=== PATIENT | female | born 1940 | race African-American/Black ===

== ENCOUNTER 2017-04-22 14:11 | Inpatient (IN) ==
[2017-04-22] MEDS ORDERED: ALBUTEROL/IPRATROPIUM 3 ML NEB RESP TX STA (14:55)
[2017-04-22] MEDS ORDERED: ONDANSETRON 4 MG/2 ML VIAL IV STA (14:56)
[2017-04-22] MEDS ORDERED: SODIUM CHLORIDE 0.9% 2,000 ML IV STA (14:56)
--- NOTE | 2017-04-22 15:02 | Emergency Department Note ---
Arrival - Arrival Chief Complaint: Shortness of Breath Stated Complaint: altered mental status ED Nursing Triage Note: Transfer from [facility] for futher evaluation of dehydration and shortness of breath. Daughter reports patient "gasping for breaths around 0100am". Patient non-verbal x 1.5 weeks per history, also taking radiation for brain cancer. Mode of Arrival: Stretcher Source: Family Time Seen by Provider: 04/22/17 14:54 - History of Present Illness HPI Narrative: This 77-year-old black female diagnosed 2 months ago with glioblastoma followed by Dr. Tello Nicole for radiation therapy presents with a history of becoming more short of breath with gasping respirations earlier today. She was taken to [facility] where she was stabilized and then transferred here. Notable findings at [place] were evidence of acute renal failure and diffuse metabolic abnormalities. The staff there felt she had a mild seizure characterized by diffuse myoclonic muscle movements and for this she was given 750 mg of Keppra IV as well as 10 mg of Decadron IV. Currently patient is on Keppra to suppress seizures from her primary brain tumor. The family states that the patient has been going down [place] for the last 3 weeks and in the last 10 days has become nonverbal, eating almost nothing, and not taking fluids well at all. Currently the patient appears stuporous but in no acute medical distress. Despite being informed by neurosurgery at [facility] that if there was no response to treatment by the tumor, there was nothing more that could be done, the family still wants the patient to be a full code. Onset (ago): hour(s) (Patient presents 12 hours since onset of symptoms) Date of Last Menstrual Period: [facility] Allergies/Adverse Reactions: Allergies Allergy/AdvReac Type Severity Reaction Status Date / Time No Known Allergies Allergy Verified 04/22/17 14:56 Home Medications: Home Medications Medication Instructions Recorded Confirmed Type Potassium Chloride 8 meq PO BID 12/15/15 04/11/17 History Spironolactone [Aldactone] 12.5 mg PO DAILY 12/15/15 04/11/17 History amLODIPine [Norvasc] 2.5 mg PO QAM 12/15/15 04/11/17 History Aspirin EC Tab 325 mg PO QAM 04/11/17 04/11/17 History Atorvastatin [Lipitor] 10 mg PO QAM 04/11/17 04/11/17 History Dexamethasone Tab [Decadron Tab] 4 mg PO BID 04/11/17 04/11/17 History Pantoprazole Tab [Protonix Tab] 40 mg PO QAM 04/11/17 04/11/17 History Polyvinyl Alcohol [Artificial 1 - 2 drops BOTH EYES QPM 04/11/17 04/11/17 History Tears] Sertraline [Zoloft] 50 mg PO QAM 04/11/17 04/11/17 History levETIRAcetam [Levetiracetam] 750 mg PO BID 04/11/17 04/11/17 History oxyCODONE IR [Roxicodone] 5 mg PO Q6H PRN 04/11/17 04/11/17 History Review of System - Review of System ROS unobtainable: due to mental status Medical,Surgical,& Family Hx - Medical History Cardio: History of: Hypertension Psychological: History of: Depression Neurology: History of: Cerebrovascular Accident (x 2), Migraine No history of: Seizures HEENT: History of: Eye Problem (glasses) Endocrine: No history of: Thyroid Disorder Rheumatology: History of;: Rheumatoid Arthritis Genitourinary: No history of: Kidney Stones Gastrointestinal: History of: GERD, Polyps No history of: Hepatitis, Liver Problems Hematology: History of: Anemia No history of: Blood Transfusion Reaction Other: No history of: Anesthesia Reactions, Cancer - Surgical History Cardiac Surgeries: Patient Denies: Cardiac Catheterization HEENT Surgeries: Surgical HX of: Eye Surgery (cataracts), Tonsilectomy & Adenoidectomy Abdominal Surgeries: Surgical HX of: Appendectomy, Cholecystectomy, Colonoscopy , EGD Reproductive Surgeries: Surgical HX of;: Hysterectomy Patient denies;: Breast Surgery Orthopedic Surgeries: Patient denies;: Orthopedic Surgery - Family History Family History: Reports;: Family Cancer (mother-liver. aunt-bladder, sister-lung ) - Social History Smoking Status: Never smoker Frequency of Alcohol Use: None Type of Drug Use: None Exam Physical Examination: GENERAL: Chronically ill appearing black female HEENT: Normocephalic. No trauma. Moist mucous membranes. EOMI. PERRLA. ENT NML NECK: Supple. No adenopathy. CARDIAC: Regular. No murmurs. Heart rate 100 CHEST: Clear to auscultation. No respiratory distress. O2 sat 100% ABDOMEN: Soft. Nontender. Active bowel sounds. EXTREMITIES: No trauma. Normal ROM. No pedal edema. SKIN: No diaphoresis. No rash. NEURO: Withdraws to pain with evidence of motion of all 4 extremities but patient otherwise stuporous. Vital Signs: Vital Signs Temperature 97.2 F L 04/22/17 14:11 Pulse Rate 114 H 04/22/17 15:28 Respiratory Rate 18 04/22/17 15:28 Blood Pressure 113/70 04/22/17 14:11 O2 Sat by Pulse Oximetry 100 04/22/17 15:28 Course Course Narrative: I reviewed the most recent CT done as an outpatient which reveals a massive tumor with very superior implications. - Reevaluation(s) Reevaluation #1: Discussed with the family that we would have to transfer this patient to [facility] for neurosurgical backup if there are intention was to continue to make her a full code. At this point time the family feels to confused to make that decision and thus we will transfer to [facility] - Consultations Consultation #1: Discussed with the hospitalist service to felt as long as the patient was a full code she would best be served going to [facility] where they had neurosurgical backup. Consultation #2: Discussed with [facility] who will accept the patient in transfer, Dr. Sol accepting MD Results - Labs Labs: Lab per [facility] white blood cell count 11,800, hematocrit 46.9 BUN 109, creatinine 2.2, sodium 152, potassium 5.0 - Impressions EKG: Sinus tachycardia with normal NM interval but right ventricular conduction delay. Diffuse T-wave inversion but no acute injury pattern noted. - Diagnostic Findings Procedure: Chest x-ray: image reviewed by me, report reviewed by me (No acute disease but elevated left hemidiaphragm noted with no interval change on comparison films.) Disposition Clinical Impression: Glioblastoma, Acute renal failure Case discussed with: patient's family Disposition: Disch/Xfer-[facility] Term Hos Condition: Guarded Time of Disposition: 16:02
[2017-04-22] MEDS ORDERED: ONDANSETRON 4 MG/2 ML VIAL ONE (15:20)
--- NOTE | 2017-04-22 15:30 | CT Report ---
History is brain tumor Comparison with 04/26/2015 There has been mild worsening of ventricular dilatation however there has been increase in the amount of patchy and more confluent white matter low densities mildly more pronounced on the left where there is a more focal chronic encephalomalacia in anterior left basal ganglia Again seen are dense calcifications in the anterior coronal radiata and centrum semiovale on the right and white matter posterior to the posterior aspect of the lateral ventricle on the right. There has been progression of calcifications surrounding these areas with additional faint calcific density extending anteriorly across the corpus callosum to the left of midline. No focal mass effect or midline shift is present. The hyperdensity most likely related to calcification without definite evidence of acute hemorrhage seen. No acute cortical stroke identified Impression: 1. Progressive calcifications described above most likely related to progression of underlying neoplasm extending across the left of midline in the anterior aspect of the corpus callosum. 2. Progression of white matter disease which could be related to progression of chronic microvascular ischemia or sequelae of radiation. The CT exam was performed using one or more of the following dose reduction techniques: Automated exposure control, adjustment of the mA and/or kV according to patient size, or use of iterative reconstruction technique. PROCEDURE INTERPRETED AT [facility] [place] DEPARTMENT OF RADIOLOGY Final Report Signed by: Dr. Gavi Owens
--- NOTE | 2017-04-22 15:38 | EKG Report ---
Stationary ECG Study [facility] ER Test Date: 04/22/2017 3:38:09 PM Pat Name: RONDA BOUCHER Department: Room: Gender: F Cna: : 1940 Requested by: Natanael Briggs Order Number: [id number] Reading MD: KARINA SIMMS Intervals [place] Rate: 110 P: 81 WV: 156 QRS: 89 QRSD: 87 T: 192 QT: 318 QTc: 383 Interpretive Statements SINUS TACHYCARDIA POSSIBLE RIGHT VENTRICULAR CONDUCTION DELAY ST DEVIATION AND MODERATE T-WAVE ABNORMALITY, CONSIDER ANTEROLATERAL ISCHEMIA ST DEVIATION AND MODERATE T-WAVE ABNORMALITY, CONSIDER INFERIOR ISCHEMIA Electronically Signed On 04-23-17 10:39:57 CDT by KARINA SIMMS [email or web address]
--- NOTE | 2017-04-22 15:40 | XRay Report ---
History short of breath. The heart is normal in size There is elevation left diaphragm with mild linear opacity in the left lung base No confluent infiltrates are seen. Impression: Minimal discoid atelectasis in the left lung base PROCEDURE INTERPRETED AT [facility] DEPARTMENT OF RADIOLOGY Final Report Signed by: Dr. Gavi Owens
[2017-04-22] MEDS ORDERED: HYDROmorphone 2 MG/1 ML VIAL IV PRN (17:16)
[2017-04-22] MEDS ORDERED: ONDANSETRON 4 MG/2 ML VIAL IV PRN (17:16)
[2017-04-22] MEDS ORDERED: ACETAMINOPHEN 325 MG TABLET PO PRN (17:46)
--- NOTE | 2017-04-22 17:50 | Hospitalist History & Physical ---
Assessment and Plan (1) Glioblastoma Status: Acute Assessment and plan: Pt. diagnosed with glioblastoma 2 months ago. Has received 20 treatments of radiation therapy from Dr. Tello Nicole. Pt.'s family has also been informed by neurosurgery at [facility] that if there was no response to therapy; nothing could be done. Pt. is aware of patient's poor prognosis and wishes that patient's status be changed to DNR. Pt's family would like comfort care. Consult to psychiatric social worker for hospice services. Current Visit: Yes (2) Hypertension Status: Acute Assessment and plan: Pt's blood pressure is currently stable. 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 Current Visit: Yes (5) Hx of cholecystectomy Status: Chronic Current Visit: Yes (6) History of appendectomy Status: Chronic Current Visit: Yes (7) Depression Status: Acute Current Visit: Yes History of Present Illness Chief complaint: shortness of breath History of present illness: Ms. Young is a 77 year old black female recently diagnosed with glioblastoma and has a history of hypertension, CVA 2, depression, rheumatoid arthritis, GERD, polyps, anemia that presented to the hospital for further evaluation of shortness of breath. Patient was initially taken to [facility] in [place], [place] where she was stabilized and then transferred here. Findings at [facility] revealed acute renal failure and diffuse metabolic abnormalities. Per ER physician's note the patient was given Keppra as well as a steroid there. Her daughter, who is her only child, is present at the bedside. She stated that since the diagnosis of glioblastoma and radiation treatment, patient 's condition has progressively worsened over the last 3 weeks. Patient has been nonverbal for the past week and a half. She is also paralyzed from previous strokes. Last night her daughter noted that she was having a hard time breathing and began 'rattling'. At the point she became concerned. As noted above, pt. was seen in [place], and transferred here. CT revealed 'progressive calcifications most likely related to the progression of underlying neoplasm extending across the left of midline in the anterior aspect of the corpus callosum'. Patient's family initially wanted patient to be transferred to [facility] however after discussion with Dr. Contreras and being fotmed that [facility] could not offer therapy, pt's daughter wishes to stay here. CODE STATUS has been discussed with patient's daughter who was at the bedside and she requests DO NOT RESUSCITATE. Patient will be admitted to the hospitalist service for hospice referral and comfort care measures. Home Medications Medication Instructions Recorded Confirmed Type Potassium Chloride 8 meq PO BID 12/15/15 04/11/17 History Spironolactone [Aldactone] 12.5 mg PO DAILY 12/15/15 04/11/17 History amLODIPine [Norvasc] 2.5 mg PO QAM 12/15/15 04/11/17 History Aspirin EC Tab 325 mg PO QAM 04/11/17 04/11/17 History Atorvastatin [Lipitor] 10 mg PO QAM 04/11/17 04/11/17 History Dexamethasone Tab [Decadron Tab] 4 mg PO BID 04/11/17 04/11/17 History Pantoprazole Tab [Protonix Tab] 40 mg PO QAM 04/11/17 04/11/17 History Polyvinyl Alcohol [Artificial 1 - 2 drops BOTH EYES QPM 04/11/17 04/11/17 History Tears] Sertraline [Zoloft] 50 mg PO QAM 04/11/17 04/11/17 History levETIRAcetam [Levetiracetam] 750 mg PO BID 04/11/17 04/11/17 History oxyCODONE IR [Roxicodone] 5 mg PO Q6H PRN 04/11/17 04/11/17 History Allergies Allergy/AdvReac Type Severity Reaction Status Date / Time No Known Allergies Allergy Verified 04/22/17 14:56 Medical,Surgical,& Family Hx - Medical History Cardio: History of: Hypertension Psychological: History of: Depression Neurology: History of: Cerebrovascular Accident (x 2), Migraine No history of: Seizures HEENT: History of: Eye Problem (glasses) Endocrine: No history of: Thyroid Disorder Rheumatology: History of;: Rheumatoid Arthritis Genitourinary: No history of: Kidney Stones Gastrointestinal: History of: GERD, Polyps No history of: Hepatitis, Liver Problems Hematology: History of: Anemia No history of: Blood Transfusion Reaction Other: No history of: Anesthesia Reactions, Cancer - Surgical History Cardiac Surgeries: Patient Denies: Cardiac Catheterization HEENT Surgeries: Surgical HX of: Eye Surgery (cataracts), Tonsilectomy & Adenoidectomy Abdominal Surgeries: Surgical HX of: Appendectomy, Cholecystectomy, Colonoscopy , EGD Reproductive Surgeries: Surgical HX of;: Hysterectomy Patient denies;: Breast Surgery Orthopedic Surgeries: Patient denies;: Orthopedic Surgery - Family History Family History: Reports;: Family Cancer (mother-liver. aunt-bladder, sister-lung ) - Social History Smoking Status: Never smoker Frequency of Alcohol Use: None Type of Drug Use: None Lives With:: Children Functional capacity: bed bound ROS unobtainable: due to mental status Exam - Constitutional Vitals: Period Temp Pulse Resp BP Sys/Delcid Pulse Ox Last 24 Hr 97.2 F 114-118 18-30 113/70 100-100 General appearance: normal weight, no acute distress - Head Head exam: Present: normal inspection, normocephalic - Eye Eye exam: Present: EOMI. Absent: scleral icterus Pupils: Present: JULIEN. Absent: dilated - Respiratory Respiratory exam: Present: clear to auscultation bilaterally. Absent: wheezes - Cardiovascular Cardiovascular exam: Present: tachycardia - GI/Abdominal GI/Abdominal exam: Present: soft. Absent: tenderness - Extremities Exam Extremities exam: Absent: full ROM, edema - Neurological Exam Neurological exam: Present: altered, other (withdraws to pain). Absent: oriented X3 - Skin Skin exam: Present: normal color, warm, dry
[2017-04-22] MEDS: SODIUM CHLORIDE 0.9% 1,000 ML IV SCH (19:46)
[2017-04-22] MEDS: DEXAMETHASONE 4 MG/1 ML VIAL IV SCH (21:43)
[2017-04-23] MEDS: DEXAMETHASONE 4 MG/1 ML VIAL IV SCH ×2 (09:08→22:02)
[2017-04-23] MEDS: SODIUM CHLORIDE 0.9% 1,000 ML IV SCH ×2 (10:16→22:06)
[2017-04-23] MEDS ORDERED: LORazepam 2 MG/1 ML VIAL IV PRN (13:42)
--- NOTE | 2017-04-23 14:25 | Hospitalist Progress Note ---
Assessment and Plan - Time spent with patient Time spent with patient: Greater than 30 minutes (1) Glioblastoma Status: Acute Assessment and plan: Nonoperable and terminal. Family is concerned that she is eating less. Given her poor prognosis a PEG tube is not in the patient's best interest. We are unable to continue her medications by mouth. Will refer to hospice. Current Visit: Yes Hospitalist: Subjective Interval history: Mr. Macias was admitted for a decline in her state. She has known glioblastoma. Furthermore multiple CVAs in the past have rendered her bed bound. Family is interested in hospice. Exam - Constitutional Vitals: Period Temp Pulse Resp BP Sys/Delcid Pulse Ox Last 24 Hr 97.3 F-98.6 F 85-117 16-23 97-143/52-80 99-100 General appearance: no acute distress - Head Head exam: Present: normocephalic, atraumatic - Eye Eye exam: Present: EOMI Pupils: Present: JULIEN - ENT ENT exam: Present: normal exam - Neck Neck exam: Present: normal inspection - Respiratory Respiratory exam: Present: clear to auscultation bilaterally. Absent: rhonchi, wheezes - Cardiovascular Cardiovascular exam: Present: regular rate and rhythm. Absent: gallop, rubs, systolic murmur - GI/Abdominal GI/Abdominal exam: Present: normal bowel sounds, soft. Absent: distended, firm , guarding, tenderness, rebound - Extremities Exam Extremities exam: Present: normal inspection. Absent: calf tenderness, edema Results - Labs Lab Results: I have reviewed the past 24 hour labs
[2017-04-23] MEDS: DESITIN 4OZ/NYSTATIN 15 GRAM MIXTURE PASTE TOP SCH (22:10)
[2017-04-24] MEDS: DEXAMETHASONE 4 MG/1 ML VIAL IV SCH (08:39)
[2017-04-24] MEDS: DESITIN 4OZ/NYSTATIN 15 GRAM MIXTURE PASTE TOP SCH (09:55)
--- NOTE | 2017-04-24 10:48 | Discharge Summary ---
Hospital Course - Hospital Course Hospital Course: Mr. Young was admitted for evaluation of 2 weeks of reduced intake of food, nonverbal and altered mental status. She was recently diagnosed with glioblastoma 2 months ago and has received radiation treatment. She was seen by neurosurgeon at [facility] and this was deemed nonoperable and terminal. While in the ED, she had a CT of the head revealed extensive disease with extension of glioblastoma across midline. Daughter opted for comfort measures only and referral to hospice. Patient was seen by social work associate and this was arranged for the patient to be discharged home with hospice care. The daughter who is the only child was instructed that the patient is not a suitable candidate for PEG tube and the daughter agreed. I spent 36 minutes coordinating this discharge. - Time spent with patient Time with patient DS: Greater than 30 minutes Diagnosis - Discharge Diagnosis (1) Glioblastoma Status: Acute Discharge Plan - Discharge Data Disposition: Disch To Home/Self Care Condition at Discharge: Undetermined (Hospice) Discharge Diet: advance to your usual diet - Discharge Medications Continue oxyCODONE IR [Roxicodone] 5 mg PO Q6H PRN PRN Reason: Pain levETIRAcetam [Levetiracetam] 750 mg PO BID Polyvinyl Alcohol [Artificial Tears] 1 - 2 drops BOTH EYES QPM Sertraline [Zoloft] 50 mg PO QAM Dexamethasone Tab [Decadron Tab] 4 mg PO BID Discontinued Spironolactone [Aldactone] 12.5 mg PO DAILY amLODIPine [Norvasc] 2.5 mg PO QAM Potassium Chloride 8 meq PO BID Atorvastatin [Lipitor] 10 mg PO QAM Pantoprazole Tab [Protonix Tab] 40 mg PO QAM Aspirin EC Tab 325 mg PO QAM - Follow Up or Referral - Forms/Instructions Exam - Constitutional Vitals: Period Temp Pulse Resp BP Sys/Delcid Pulse Ox Last 24 Hr 97.4 F-98.6 F 92-114 16-20 84-119/46-78 97-99 General appearance: normal weight - ENT ENT exam: Present: normal exam - Neck Neck exam: Present: normal inspection - Respiratory Respiratory exam: Present: clear to auscultation bilaterally - Cardiovascular Cardiovascular exam: Present: regular rate and rhythm. Absent: bradycardia, irregular rhythm, systolic murmur - GI/Abdominal GI/Abdominal exam: Present: normal bowel sounds - Extremities Exam Extremities exam: Present: normal inspection - Neurological Exam Neurological exam: Absent: alert, oriented X3 DS: Provider Date of admission: 04/22/17 17:14 Primary care physician: Derrick Viveros MD Attending physician on admission: Jesica Mcpherson Consults: 04/22/17 18:50 Consult to Case Mgmt/Social Srvs [CONS] Routine Reason for Case Mgmt/Social Srvs: Hospice Referral Consult Comment: [facility] [place] Consult to Pastoral Services [CONS] Routine Comment: Pt is DNR; patient need support Pastoral Screen: Terminal Diagnosis Pastoral Screen Source of Request: Patient Family 04/22/17 19:11 Consult to Dietitian [CONS] Routine Reason for Dietitian: Other Consult Comment: admission assessment 04/22/17 20:08 Consult to Case Mgmt/Social Srvs [CONS] Routine Reason for Case Mgmt/Social Srvs: Hospice Referral Discharging clinician: Malena Baer MD Expected date of discharge: 04/24/17
[2017-04-24 11:50] VITALS: BP 112/57
[2017-04-24] MEDS: SODIUM CHLORIDE 0.9% 1,000 ML IV SCH (15:34)
== END 2017-04-24 14:05 | disposition hospice, home (50) | DRG 55 ==
LOC: N.ED 14:11 → SUATTDRO 17:14 → N.EDINP 17:14 → N.4E 18:34
PROVIDERS: ADMIT Nurse Practitioner Family; ATTEND Internal Medicine